=== PATIENT | male | born 1930 | race Caucasian/White ===

== ENCOUNTER 2020-01-25 17:36 | Inpatient (IN) | payer MEDICARE, BC ==
[~2020-01-25] VITALS: Ht 182.9 cm; Wt 94.4 kg
[~2020-01-25 17:36] MED LIST: ASPI81EC PO; CHOL10002 PO; CIPRO500 MG PO; CYAN100 PO; LUTEIN-ZEAXANT1 EACH; MAGOXI400 PO; MELA3 PO; METO25ER PO; OMEG1CAP30 PO; OXYACE5T PO; Zithromax250 MG PO
[2020-01-25 21:00] LABS: Calcium, Ionized (POC) 1.13 mmol/L (1.10-1.46); Chloride (POC) 101 mmol/L (98-108); Creatinine (POC) 0.7 mg/dL (0.8-1.3); Glucose (ISTAT POC) 109 mg/dL (70-99); Sodium (POC) 138 mmol/L (135-148); Total CO2 (POC) 26 mmol/L (21-32)
[2020-01-25 21:04] LABS: BASOPHILS ABSOLUTE AUTO 0.03 K/mm3 (0.00-0.23); BASOPHILS PERCENT AUTO 0 % (0-2); EOSINOPHILS ABSOLUTE AUTO 0.06 K/mm3 (0.00-0.68); EOSINOPHILS PERCENT AUTO 1 % (0-6); Hematocrit 43.8 % (37.0-53.0); Hemoglobin 14.7 g/dL (13.5-17.5); IMMATURE GRAN ABSOLUTE AUTO 0.06 K/mm3 (0.00-0.10); IMMATURE GRAN PERCENT AUTO 1 % (0-1); LYMPHOCYTES ABSOLUTE AUTO 0.74 K/mm3 (0.84-5.20); LYMPHOCYTES PERCENT AUTO 7 % (21-46); MONOCYTES ABSOLUTE AUTO 0.52 K/mm3 (0.16-1.47); MONOCYTES PERCENT AUTO 5 % (4-13); Mean Corpuscular HGB 31.9 pg (26.0-34.0); Mean Corpuscular HGB Conc 33.6 g/dL (31.5-36.5); Mean Corpuscular Volume 95 fL (80-100); Mean Platelet Volume 10.1 fL (9.1-12.4); NEUTROPHILS ABSOLUTE AUTO 8.93 K/mm3 (1.96-9.15); NEUTROPHILS PERCENT AUTO 86 % (41-73); Platelet Count 164 K/mm3 (150-400); RDW Coefficient Variation 12.8 % (11.7-14.2); RDW Standard Deviation 45.1 fL (35.1-46.3); Red Blood Cell Count 4.61 M/mm3 (4.30-5.90); White Blood Cell Count 10.34 K/mm3 (4.00-11.30)
[2020-01-25 21:23] LABS: Alanine Aminotransfer (ALT/SGP 17 U/L (12-78); Albumin, Blood 3.7 g/dL (3.4-5.0); Albumin/Globulin Ratio 1.2 (0.8-1.8); Alk Phos 59 U/L (50-136); Anion Gap 5 mmol/L (6-16); Aspartate Aminotrans (AST/SGOT 20 U/L (12-37); Bilirubin, Total 0.8 mg/dL (0.1-1.0); Blood Urea Nitrogen 11 mg/dL (8-24); Bun/Creatinine Ratio 15.2 (12.0-20.0); CO2, Blood 29 mmol/L (21-32); Calcium, Blood 8.6 mg/dL (8.5-10.1); Chloride, Blood 106 mmol/L (98-108); Creatinine, Blood 0.72 mg/dL (0.60-1.20); Glomerular Filtration Rate >60 (60-); Glucose, Blood 109 mg/dL (70-99); Sodium, Blood 140 mmol/L (136-145); Total Protein, Blood 6.7 g/dL (6.4-8.2)
[2020-01-25 22:09] LABS: Troponin I <0.015 ng/mL (0.000-0.040)
--- NOTE | 2020-01-26 00:30 | NUR ---
RECEIVED HAND OFF FROM Zaire BÑAUELOS RN USING SBAR. TRANSPORTED TO ROOM 210 VIA STRETCER. TRANSFERED TO BED WITH FULL STAFF ASSISTANCE, TOLERATED WELL. AAO X3, MUÑIZ, FOLLOWS ALL COMMANDS. REPORTS THAT HE WAS IN STORE, TURNED AND MISSED A SMALL STEP. FELL AND HIT CHEST ON CIRCULAR SAW HANDLE AND HIT HEAD ON GROUND, SELENA LOC. LEFT STERNAL FRACTURE, AND FOREHEAD LAC. STITCHES NOTED TO FOREHEAD THAT ARE WELL APPROXIMATED. HEMATOMA NOTED TO LEFT SUPRAORBITAL AREA. POOLING NOTED AROUND LEFT EYE. MILD STERNAL PAIN WITH DEEP RESPIRATIONS. PAIN INCREASES WITH MOVEMENT OF ARMS. STATES, "IT FEELS LIKE IT IS CRUNCHING AND RUBBING IN HERE." WHILE POINTING TO AND CRADELING HIS CHEST. RESPIRATIONS EVEN AND UNLABORED ON ROOM AIR. LUNG SOUNDS COARSE BILATERALLY. ABDOMEN SOFT AND NONDISTENDED. BOWEL SOUNDS PRESENT IN ALL QUADS. STATES IT HAS BEEN 2 DAYS SINCE LAST BM. RIGHT FA 20G FIELD START PIV IS PATENT, FLUSHING WITH EASE. CONTINENT OF BOWEL AND BLADDER, USES URINAL IN BED WITH EASE. HAS BLACK COMRPRESSION SLEEVES TO BLE. STATED THAT HE WEARS THEM FOR 5 DAYS IN A ROW, THEN TAKES THEM OFF AND WASHES THEM. REPORTS PAIN OF 2/10 WHEN PERFECTLY STILL. REPORTS FLARE UPS UP TO 8/10 WITH MOVEMENT AND REPOSITIONING. REFUSES OFFER FOR PAIN MEDS AT THIS TIME. DR. ZELAYA CONTACTED FOR ORDERS, WILL PLACE THEM IN COMPUTER. SCD'S TO BLE. ADMISSION ASSESSMENT IN PROGRESS. DENIES FURTHER NEEDS OR WANTS AT THIS TIME. SAFETY MEASURES IN PLACE. WILL CONTINUE TO MONITOR.
[2020-01-26 01:14] LABS: Source, Urine Clean Catch
[2020-01-26 01:25] LABS: Bilirubin, Urine Neg (Neg); Blood, Urine 3+ (Neg); Glucose Qualitative, Urine Neg (Neg); Ketones, Urine 2+ (Neg); Leukocyte Esterase, Urine Neg (Neg); Nitrite, Urine Neg (Neg); Protein, Urine Neg (Neg); Specific Gravity, Urine 1.005 (1.003-1.022); Urobilinogen, Urine NORM (Normal)
[2020-01-26 01:30] LABS: Appearance, Urine Clear (Clear); Color, Urine Yellow (P-Yellow)
[2020-01-26 01:31] LABS: Bacteria Not Seen /hpf; Squamous Epithelial Cells Not Seen /hpf (Few); White Blood Cells, Urine Not Seen /hpf (0-5)
[2020-01-26] MEDS ORDERED: TERA5 PO (01:37)
--- NOTE | 2020-01-26 04:46 | NUR ---
SHIFT SUMMARY LYING IN SEMI FOWLERS WITH EYES CLOSED. HAS RESTED WELL SINCE ADMISSION. PAIN MED GIVEN X1 HAS BEEN EFFECTIVE. RESPIRATION EVEN AND UNLABORED ON ROOM AIR. CONTUSIONS CONTINUE TO SETTLE TO EYE AND CHEST AREA. DENIES PAIN, DISCOMFORT, OR FURTHER NEEDS AT THIS TIME. SAFETY MEASURES IN PLACE. WILL CONTINUE TO MONITOR AND GIVE HAND OFF TO ONCOMING SHIFT USING SBAR.
--- NOTE | 2020-01-26 10:59 | NUR ---
PT STATED THAT HE NEEDED TO HAVE A BOWEL MOVEMENT AT ABOUT 1015 AND GENESIS NAIDU AND MYSELF ASSISTED PT TO THE TOLIET. PT TOLERATED TRANSFER WELL, BUT THEN REPORTED FEELING DIZZY AFTER SITTING ON THE TOLIET FOR A FEW MINUTES. PT'S BP TAKEN AND SHOWED 97/41. PT FELT COOL AND CLAMMY AT THIS TIME. WHEELCHAIR BROUGHT INTO ROOM AND PT TRANSFERED TO WHEELCHAIR. AFTER SITTING DOWN IN WHEELCHAIR PT BECAME UNRESPONSIVE FOR ABOUT 5 SECONDS, THEN AWOKE WITH A STERAL RUB. RR TEAM CALLED AND ENTERED ROOM AT THIS TIME. PT ABLE TO RESPOND TO ORIENTATION QUESTIONS, RESPONSE TIME WAS A LITTLE SLOW. PT THEN TRANSFERED BACK TO BED WITH HELP OF RR TEAM. PT A/O AT THIS TIME AND VITAL SIGNS TAKEN. BP WAS 116/56 AND PT REPORTED FEELING "MUCH BETTER". DR. ZELAYA MADE AWARE OF THIS, SEE NEW ORDERS
[2020-01-26 11:43] LABS: BASOPHILS ABSOLUTE AUTO 0.03 K/mm3 (0.00-0.23); BASOPHILS PERCENT AUTO 0 % (0-2); EOSINOPHILS PERCENT AUTO 1 % (0-6); Hematocrit 42.9 % (37.0-53.0); Hemoglobin 14.5 g/dL (13.5-17.5); IMMATURE GRAN ABSOLUTE AUTO 0.05 K/mm3 (0.00-0.10); IMMATURE GRAN PERCENT AUTO 0 % (0-1); LYMPHOCYTES PERCENT AUTO 7 % (21-46); MONOCYTES ABSOLUTE AUTO 1.02 K/mm3 (0.16-1.47); MONOCYTES PERCENT AUTO 8 % (4-13); Mean Corpuscular HGB 32.2 pg (26.0-34.0); Mean Corpuscular HGB Conc 33.8 g/dL (31.5-36.5); Mean Corpuscular Volume 95 fL (80-100); Mean Platelet Volume 10.2 fL (9.1-12.4); NEUTROPHILS PERCENT AUTO 84 % (41-73); Platelet Count 167 K/mm3 (150-400); RDW Coefficient Variation 12.5 % (11.7-14.2); RDW Standard Deviation 43.8 fL (35.1-46.3)
[2020-01-26 12:05] LABS: Alanine Aminotransfer (ALT/SGP 14 U/L (12-78); Albumin, Blood 3.5 g/dL (3.4-5.0); Albumin/Globulin Ratio 1.1 (0.8-1.8); Alk Phos 61 U/L (50-136); Anion Gap 6 mmol/L (6-16); Aspartate Aminotrans (AST/SGOT 24 U/L (12-37); Bilirubin, Total 1.4 mg/dL (0.1-1.0); Blood Urea Nitrogen 12 mg/dL (8-24); CO2, Blood 31 mmol/L (21-32); Calcium, Blood 8.5 mg/dL (8.5-10.1); Chloride, Blood 100 mmol/L (98-108); Creatinine, Blood 0.86 mg/dL (0.60-1.20); Globulin, Blood 3.1 g/dL (2.2-4.0); Glomerular Filtration Rate >60 (60-); Glucose, Blood 150 mg/dL (70-99); Potassium, Blood 3.8 mmol/L (3.5-5.5); Sodium, Blood 137 mmol/L (136-145); Total Protein, Blood 6.6 g/dL (6.4-8.2); Troponin I 0.043 ng/mL (0.000-0.040)
--- NOTE | 2020-01-26 12:26 | NUR ---
ECHOCARDIOGRAM COMPLETED
--- NOTE | 2020-01-26 16:45 | NUR ---
TELE BOX VERIFED AT ABOUT 6244. NSR @ 59
--- NOTE | 2020-01-26 17:23 | NUR ---
SUMMARY: SEE PREVIOUS NOTE. NO ACUTE CHANGE SINCE THIS MORNING. PT IS A/O, VSS. HAS NOT HAD ANY SYMPTOMS OF SYNCOPE THE REST OF TODAY. PT MEDICATED FOR PAIN PRN, HAS HAD INTERMITTANT NAUSEA. FLUIDS RUNNING. PT AT BEDSIDE. PT/OT TO WORK WITH PT TOMORROW. NO ACUTE SAFETY CONCERNS, PT USING CALL LIGHT. WILL PASS REPORT ONTO [facility]
[2020-01-26 20:00] LABS: Creatine Kinase MB 2.1 ng/mL (0.0-3.6); Creatine Kinase MB Index 1.4 (0.0-4.0); Troponin I 0.03 ng/mL (0.000-0.040)
[2020-01-27 03:31] LABS: Hematocrit 38.6 % (37.0-53.0); Hemoglobin 13.3 g/dL (13.5-17.5); Mean Corpuscular HGB 32.4 pg (26.0-34.0); Mean Corpuscular HGB Conc 34.5 g/dL (31.5-36.5); Mean Corpuscular Volume 94 fL (80-100); Mean Platelet Volume 10.1 fL (9.1-12.4); Platelet Count 157 K/mm3 (150-400); RDW Coefficient Variation 12.5 % (11.7-14.2); RDW Standard Deviation 43.2 fL (35.1-46.3); White Blood Cell Count 9.35 K/mm3 (4.00-11.30)
[2020-01-27 03:58] LABS: Albumin, Blood 3.2 g/dL (3.4-5.0); Anion Gap 5 mmol/L (6-16); Blood Urea Nitrogen 12 mg/dL (8-24); Bun/Creatinine Ratio 17.2 (12.0-20.0); CO2, Blood 30 mmol/L (21-32); CPK Creatine Kinase 159 U/L (39-308); Calcium, Blood 8.3 mg/dL (8.5-10.1); Chloride, Blood 99 mmol/L (98-108); Creatine Kinase MB 2.4 ng/mL (0.0-3.6); Creatine Kinase MB Index 1.5 (0.0-4.0); Free Thyroxine 0.92 ng/dL (0.70-1.60); Glomerular Filtration Rate >60 (60-); Glucose, Blood 112 mg/dL (70-99); Phosphorus, Blood 2.7 mg/dL (2.5-4.9); Sodium, Blood 134 mmol/L (136-145); Troponin I 0.041 ng/mL (0.000-0.040)
--- NOTE | 2020-01-27 04:47 | NUR ---
SHIFT SUMMARY LYING IN SEMI FOWLERS WITH EYES CLOSED. HAS RESTED SPORATICALLY SINCE START OF SHIFT, BUT WILL DENY ANY SLEEP WHEN ASKED. PAIN MED GIVEN X1 HAS BEEN EFFECTIVE. SPOUSE CALLED TO ASK ABOUT STATUS, UPDATE GIVEN. NEW PIV PLACED AFTER ADMIT PIV DISLODGED WHEN PT WAS STARTLED BY NOISE. BECAME CONFUSED BY NOISE IN HALLWAY AND BECAME INSISTANT THAT HE WAS GOING TO GO AND INVESTIGATE. HE WAS ABLE TO ANSWER ALL QUESTIONS APPROPRIATELY, BUT WAS STILL CONFUSED ABOUT NOISE, AND VERBALIZED THAT HE WAS CONFUSED AND STARTLED BY NOISE. NEW PIV PLACED X4 ATTEMPTS. DENIES DISCOMFORT, OR FURTHER NEEDS AT THIS TIME. SAFETY MEASURES IN PLACE. WILL CONTINUE TO MONITOR AND GIVE HAND OFF TO ONCOMING SHIFT USING SBAR.
--- NOTE | 2020-01-27 11:00 | NUR ---
PT SITTING UP IN CHAIR AT BEDSIDE EARLIER GAVE PT A PO OXY RE RX TO GO HOME WITH EARLIER DR ZELAYA BY TO SEE PT WILL ROUND AGAIN THIS AFTERNOON
--- NOTE | 2020-01-27 11:59 | NUR ---
PT HAVING ANXIETY R/T GOING HOME RE I CALL SHE IS CURRENTLY IN OR DISCUSSED WITH PT PT GIVEN PO TYLENOL
--- NOTE | 2020-01-27 14:02 | NUR ---
PT RESTING SITTING UP IN RECLINER CHAIR
--- NOTE | 2020-01-27 14:43 | NUR ---
dr hinojosa called update given pt in bathroom at this time has dry heaves beckafran given
[2020-01-27] MEDS ORDERED: ACET500 PO (15:00)
[2020-01-27] MEDS ORDERED: Norco 5-325 Ta1 EACH PO (15:14)
[2020-01-27] MEDS ORDERED: LIDO700A20 TOP (15:15)
[2020-01-27] MEDS ORDERED: ONDA4ODT MM (15:16)
== END 2020-01-27 15:41 | disposition home or self-care (01) | DRG 982 ==
LOC: ER 17:36 → SURS 17:37
PROVIDERS: Emergency Medicine; Internal Medicine; ADMIT Surgery
PROC: 0XQFXZZ Repair Left Lower Arm, External Approach (ICD-10-PCS; principal; 2020-01-25)
PROC: 0HQ1XZZ Repair Face Skin, External Approach (ICD-10-PCS; 2020-01-25)
DX: S51.812A Laceration without foreign body of left forearm, initial encounter (principal); S22.20XA Unspecified fracture of sternum, initial encounter for closed fracture; S01.81XA Laceration without foreign body of other part of head, initial encounter; S62.634A Displaced fracture of distal phalanx of right ring finger, initial encounter for closed fracture; W19.XXXA Unspecified fall, initial encounter; I10 Essential (primary) hypertension; N40.0 Benign prostatic hyperplasia without lower urinary tract symptoms; E03.9 Hypothyroidism, unspecified; G47.00 Insomnia, unspecified; Z79.82 Long term (current) use of aspirin; Z87.891 Personal history of nicotine dependence
CPT/HCPCS: 12002; 12014; 36415; 70450; 71045; 71250; 71275; 72125; 73120; 74175; 80047; 80053; 80069; 81001; 82550; 82553; 83735; 84439; 84443; 84484; 85014; 85025; 85027; 90471; 90714; 93005; 93010; 96374-59; 96375; 96375-59; 96376; 97162; 97166; 97530; 97535; 99285-25; A9270; A9270-GY; C8929; G0378; J1170; J2270; J2405; J7030; J7120; Q9957; Q9967